=== PATIENT | male | born 1975 | race Caucasian/White ===

== ENCOUNTER 2022-01-17 15:14 | Inpatient (IN) | payer OTHER ==
[2022-01-17 15:45] VITALS: BMI 23.6
[2022-01-17] MEDS ORDERED: IBUPROFEN 600 MG TABLET (FP) PO PRN ×2 (16:16→16:37)
[2022-01-17] MEDS ORDERED: ACETAMINOPHEN 325 MG TABLET (FP) PO PRN ×4 (16:16→16:37)
[2022-01-17] MEDS ORDERED: MAG HYDROX/AL HYDROX/SIMETH 30 ML UNIT-DOSE CUP PO PRN ×2 (16:16→16:37)
[2022-01-17] MEDS ORDERED: ONDANSETRON *ODT* 4 MG TABLET SL PRN ×2 (16:16→16:37)
[2022-01-17] MEDS ORDERED: METHOCARBAMOL 500 MG TABLET PO PRN (16:16)
[2022-01-17] MEDS ORDERED: IBUPROFEN 400 MG TABLET (FP) PO PRN ×2 (16:16→16:37)
[2022-01-17] MEDS ORDERED: BENZOCAINE/MENTHOL (CHLORASEPTIC ) LOZENGE MM PRN ×2 (16:16→16:37)
[2022-01-17] MEDS ORDERED: NALOXONE HCL (KLOXXADO) 8 MG SPRAY NS PRN ×2 (16:16→16:37)
[2022-01-17] MEDS ORDERED: LOPERAMIDE HCL 2 MG CAPSULE PO PRN ×2 (16:16→16:37)
[2022-01-17] MEDS ORDERED: DICYCLOMINE HCL 10 MG CAPSULE PO PRN ×2 (16:16→16:37)
[2022-01-17] MEDS ORDERED: MAGNESIUM HYDROX 2400MG/30ML ORAL SUSPENSION 30 ML CUP PO PRN ×2 (16:16→16:37)
[2022-01-17] MEDS ORDERED: BISMUTH SUBSALICYLATE 524 MG/30 ML PO PRN ×2 (16:16→16:37)
[2022-01-17] MEDS ORDERED: NICOTINE 10 MG CARTRIDGE (INHALER) IH PRN ×2 (16:16→16:37)
[2022-01-17] MEDS ORDERED: MAGNESIUM CITRATE 300 ML BOTTLE PO PRN ×2 (16:16→16:37)
[2022-01-17] MEDS ORDERED: PRENATAL VITAMINS W/ FOLIC ACID TABLET (FP) PO SCH (16:30)
[2022-01-17] MEDS ORDERED: chlordiazePOXIDE HCL 25 MG CAPSULE PO PRN (16:37)
[2022-01-17] MEDS ORDERED: hydrOXYzine PAMOATE 25 MG CAPSULE (FP) PO SCH (18:00)
[2022-01-17] MEDS: chlordiazePOXIDE HCL 25 MG CAPSULE PO SCH ×2 (18:44→22:10)
[2022-01-17] MEDS: PRENATAL VITAMINS W/ FOLIC ACID TABLET (FP) PO SCH (18:48)
[2022-01-17] MEDS: hydrOXYzine PAMOATE 25 MG CAPSULE (FP) PO SCH ×2 (18:48→22:34)
[2022-01-17] MEDS: NICOTINE 21 MG/24 HOURS TOPICAL PATCH TD SCH (18:48)
[2022-01-17] MEDS ORDERED: THIAMINE HCL 100 MG TABLET (FP) PO SCH (22:00)
[2022-01-17] MEDS ORDERED: MELATONIN 5 MG TABLETS PO SCH (22:00)
[2022-01-17] MEDS: THIAMINE HCL 100 MG TABLET (FP) PO SCH (22:10)
[2022-01-17] MEDS: MELATONIN 5 MG TABLETS PO SCH (22:11)
[2022-01-18] MEDS: chlordiazePOXIDE HCL 25 MG CAPSULE PO SCH ×4 (05:47→22:26)
[2022-01-18] MEDS: hydrOXYzine PAMOATE 25 MG CAPSULE (FP) PO SCH ×5 (05:47→22:26)
[2022-01-18] MEDS: NICOTINE 21 MG/24 HOURS TOPICAL PATCH TD SCH (10:13)
[2022-01-18] MEDS: METHOCARBAMOL 500 MG TABLET PO PRN ×2 (10:13→22:25)
[2022-01-18] MEDS: PRENATAL VITAMINS W/ FOLIC ACID TABLET (FP) PO SCH (10:13)
[2022-01-18 11:29] LABS: HEMATOCRIT 42.1 % (35.4-49); HEMOGLOBIN 14.4 GM/dL (11.7-16.9); MCH 36.6 pg (25.7-33.7); MCHC 34.2 g/dl (32.0-35.9); MEAN CELL VOLUME 107.1 fl (80-96); MEAN PLT VOLUME 10.1 fl (7.5-11.1); PLATELET COUNT 165 10^3/uL (134-434); RBC 3.93 M/mm3 (4.00-5.60); WHITE BLOOD COUNT 4.8 K/mm3 (4.0-10.0)
[2022-01-18 11:35] LABS: CALCIUM 9.1 mg/dL (8.5-10.1)
[2022-01-18 11:36] LABS: ALBUMIN 3.7 g/dl (3.4-5.0)
[2022-01-18 11:40] LABS: CREATININE 0.7 mg/dL (0.55-1.3)
[2022-01-18 11:41] LABS: TOT PROT 6.8 g/dl (6.4-8.2)
[2022-01-18 11:42] LABS: BILIRUBIN,TOTAL 1.2 mg/dL (0.2-1)
[2022-01-18] MEDS: MELATONIN 5 MG TABLETS PO SCH (22:25)
[2022-01-18] MEDS: THIAMINE HCL 100 MG TABLET (FP) PO SCH (22:25)
[2022-01-19] MEDS: chlordiazePOXIDE HCL 25 MG CAPSULE PO SCH ×4 (06:25→22:21)
[2022-01-19] MEDS: hydrOXYzine PAMOATE 25 MG CAPSULE (FP) PO SCH ×5 (06:25→22:23)
[2022-01-19] MEDS: METHOCARBAMOL 500 MG TABLET PO PRN (10:29)
[2022-01-19] MEDS: PRENATAL VITAMINS W/ FOLIC ACID TABLET (FP) PO SCH (10:30)
[2022-01-19] MEDS: NICOTINE 21 MG/24 HOURS TOPICAL PATCH TD SCH ×2 (10:30→12:56)
[2022-01-19] MEDS: THIAMINE HCL 100 MG TABLET (FP) PO SCH (22:22)
[2022-01-19] MEDS: MELATONIN 5 MG TABLETS PO SCH (22:22)
[2022-01-20] MEDS ORDERED: chlordiazePOXIDE HCL 10 MG CAPSULE PO PRN
[2022-01-20] MEDS: hydrOXYzine PAMOATE 25 MG CAPSULE (FP) PO SCH ×5 (05:13→22:18)
[2022-01-20] MEDS: chlordiazePOXIDE HCL 10 MG CAPSULE PO SCH ×4 (05:16→22:18)
[2022-01-20] MEDS: NICOTINE 21 MG/24 HOURS TOPICAL PATCH TD SCH (10:11)
[2022-01-20] MEDS: PRENATAL VITAMINS W/ FOLIC ACID TABLET (FP) PO SCH (10:12)
[2022-01-20] MEDS: METHOCARBAMOL 500 MG TABLET PO PRN (10:12)
[2022-01-20] MEDS: THIAMINE HCL 100 MG TABLET (FP) PO SCH (22:18)
[2022-01-20] MEDS: MELATONIN 5 MG TABLETS PO SCH (22:19)
[2022-01-21] MEDS: METHOCARBAMOL 500 MG TABLET PO PRN (02:16)
[2022-01-21] MEDS ORDERED: chlordiazePOXIDE HCL 10 MG CAPSULE PO SCH (05:00)
[2022-01-21] MEDS: hydrOXYzine PAMOATE 25 MG CAPSULE (FP) PO SCH ×2 (05:29→10:13)
[2022-01-21 09:32] VITALS: BP 147/60; PULSE 92; RESP 18; TEMP 98.2
[2022-01-21] MEDS: PRENATAL VITAMINS W/ FOLIC ACID TABLET (FP) PO SCH (10:13)
[2022-01-21] MEDS: NICOTINE 21 MG/24 HOURS TOPICAL PATCH TD SCH (10:13)
[2022-01-22] MEDS ORDERED: chlordiazePOXIDE HCL 10 MG CAPSULE PO ONE (05:00)
== END 2022-01-21 11:10 | disposition other institution (70) | DRG 775 ==
LOC: YASAS 15:14 → Y6N 16:38
PROVIDERS: ADMIT Allergy & Immunology; ATTEND Surgery
PROC: HZ2ZZZZ Detoxification Services for Substance Abuse Treatment (ICD-10-PCS; principal; 2022-01-17)
DX: F10.230 Alcohol dependence with withdrawal, uncomplicated (principal); F12.20 Cannabis dependence, uncomplicated; F17.210 Nicotine dependence, cigarettes, uncomplicated; F10.280 Alcohol dependence with alcohol-induced anxiety disorder; F10.282 Alcohol dependence with alcohol-induced sleep disorder; F10.24 Alcohol dependence with alcohol-induced mood disorder; F41.9 Anxiety disorder, unspecified; F32.A Depression, unspecified; G47.00 Insomnia, unspecified; R73.9 Hyperglycemia, unspecified; Z88.0 Allergy status to penicillin
CPT/HCPCS: 36415; 80053; 82947; 82962; 83036; 85027; 86780; 93005; 93010; C9803-CS; U0003; U0005